=== PATIENT | male | born 1935 | race Caucasian/White ===

== ENCOUNTER 2018-12-06 11:25 | Emergency (ER) | payer MEDICARE, MEDICAID ==
[2018-12-06 11:40] VITALS: BMI 27.4
[2018-12-06 12:44] LABS: SQUAMOUS EPITHIAL < 1 /hpf (0-5); URINE BILIRUBIN NEGATIVE (NEGATIVE); URINE BLOOD NEGATIVE (NEGATIVE); URINE CLARITY Clear (Clear); URINE COLOR Yellow (YELLOW); URINE GLUCOSE (UA) NORMAL (Normal); URINE LEUKOCYTE ESTERASE NEG Leu/uL (Negative); URINE PROTEIN NEGATIVE (NEGATIVE)
[2018-12-06 12:50] LABS: BASO % 0.6 % (0.0-2.0); EOS % 0.1 % (0.0-4.0); HEMOGLOBIN 13.7 g/dL (12.0-18.0); LYMPH # 1.1 K/uL (1.0-4.3); LYMPH % 20.5 % (20.0-40.0); MEAN CELL VOLUME 91.2 fL (80.0-94.0); MEAN CORPUSCULAR HEMOGLOBIN 30.1 pg (27.0-31.0); MEAN PLATELET VOLUME 8.7 fL (7.2-11.7); MONO # 0.2 K/uL (0.0-0.8); MONO % 4.7 % (0.0-10.0); NEUT # 3.9 K/uL (1.8-7.0); NEUT % 74.1 % (50.0-75.0); NRBC % 0.1 % (0.0-2.0); RBC 4.57 Mil/uL (4.40-5.90); RED CELL DISTRIBUTION WIDTH 15.4 % (11.5-14.5); WHITE BLOOD COUNT 5.2 K/uL (4.8-10.8)
[2018-12-06 13:06] LABS: ALB/GLOB RATIO 1.3 (1.0-2.1); ALBUMIN 4.5 g/dL (3.5-5.0); ALT/SGPT 20 U/L (21-72); AST/SGOT 31 U/L (17-59); BLOOD UREA NITROGEN 18 mg/dL (9-20); CALCIUM 9.3 mg/dl (8.6-10.4); GFR NON-AFRICAN AMERICAN 58; LIPASE 90 U/L (23-300)
[2018-12-06] MEDS ORDERED: Belladonna-Phenobarbital PO STA (13:33)
[2018-12-06] MEDS ORDERED: Alum-Mag Hydrox-Simethicone Susp (30 mL) PO STA (13:33)
--- NOTE | 2018-12-06 13:50 | C.PDOC ---
History Of Present Illness 82 y/o male presents to the ER complaining of persistent epigastric abdominal pain and lower back pain which has been present for the past 2 days. Patient states that he feels nauseous. Patient rates the pain 6/10. He notes that he did not take any medications for the pain. Denies having paresthesias, weakness, bowel/bladder incontinence, fever,chills, CP,SOB, vomiting, and urinary symptoms. Time Seen by Provider: 12/06/18 12:07 Chief Complaint (Nursing): Abdominal Pain History Per: Assignment Officer (ERIN intepreter # [id number]) History/Exam Limitations: no limitations Onset/Duration Of Symptoms: Days Current Symptoms Are (Timing): Still Present Severity: Moderate Past Medical History Reviewed: Historical Data, Nursing Documentation, Vital Signs Vital Signs: Last Vital Signs Temp 98.4 F 12/06/18 11:40 Pulse 85 12/06/18 11:40 Resp 17 12/06/18 11:40 BP 175/82 H 12/06/18 11:40 Pulse Ox 99 12/06/18 11:40 - Medical History PMH: HTN Other Surgeries: Hx of surgeries Family History: States: No Known Family Hx - Social History Hx Alcohol Use: No (Former) Hx Substance Use: No - Immunization History Hx Tetanus Toxoid Vaccination: No Hx Influenza Vaccination: No Hx Pneumococcal Vaccination: No Review Of Systems Except As Marked, All Systems Reviewed And Found Negative. Constitutional: Negative for: Fever, Chills Cardiovascular: Negative for: Chest Pain Respiratory: Negative for: Shortness of Breath Gastrointestinal: Positive for: Nausea, Abdominal Pain. Negative for: Vomiting Genitourinary: Negative for: Dysuria, Hematuria Musculoskeletal: Positive for: Back Pain Physical Exam - Physical Exam Appears: Non-toxic, No Acute Distress Skin: Normal Color, Warm, Dry Head: Atraumatic, Normacephalic Eye(s): bilateral: Normal Inspection Nose: Normal Oral Mucosa: Moist Neck: Supple Chest: Symmetrical Cardiovascular: Rhythm Regular Respiratory: Normal Breath Sounds, No Rales, No Rhonchi, No Wheezing Gastrointestinal/Abdominal: Bowel Sounds (hyperactive bowel sounds), Soft, Tenderness (epigastric tenderness), No Guarding, No Rebound Back: No CVA Tenderness, Paraspinal Tenderness (lumbar paraspinal tenderness) Neurological/Psych: Oriented x3, Normal Speech ED Course And Treatment - Laboratory Results Result Diagrams: 12/06/18 12:47 12/06/18 12:47 Lab Results: Troponin I < 0.0120 ng/mL (0.00-0.120) 12/06/18 12:47 Total Bilirubin 0.7 mg/dL (0.2-1.3) 12/06/18 12:47 AST 31 U/L (17-59) 12/06/18 12:47 ALT 20 U/L (21-72) L 12/06/18 12:47 Alkaline Phosphatase 83 U/L (38-126) 12/06/18 12:47 Total Protein 8.0 g/dL (6.3-8.3) 12/06/18 12:47 Albumin 4.5 g/dL (3.5-5.0) 12/06/18 12:47 Globulin 3.4 gm/dL (2.2-3.9) 12/06/18 12:47 Albumin/Globulin Ratio 1.3 (1.0-2.1) 12/06/18 12:47 Lipase 90 U/L (23-300) 12/06/18 12:47 Urine Color Yellow (YELLOW) 12/06/18 12:38 Urine Clarity Clear (Clear) 12/06/18 12:38 Urine pH 7.0 (5.0-8.0) 12/06/18 12:38 Ur Specific [place] 1.016 (1.003-1.030) 12/06/18 12:38 Urine Protein Negative mg/dL (NEGATIVE) 12/06/18 12:38 Urine Glucose (UA) Normal mg/dL (Normal) 12/06/18 12:38 Urine Ketones Negative mg/dL (NEGATIVE) 12/06/18 12:38 Urine Blood Negative (NEGATIVE) 12/06/18 12:38 Urine Nitrate Negative (NEGATIVE) 12/06/18 12:38 Urine Bilirubin Negative (NEGATIVE) 12/06/18 12:38 Urine Urobilinogen 2.0 mg/dL (0.2-1.0) 12/06/18 12:38 Ur Leukocyte Esterase Neg Alexander/uL (Negative) 12/06/18 12:38 Urine WBC (Auto) < 1 /hpf (0-5) 12/06/18 12:38 Urine RBC (Auto) 1 /hpf (0-3) 12/06/18 12:38 Ur Squamous Epith Cells < 1 /hpf (0-5) 12/06/18 12:38 ECG: Interpreted By Me, Viewed By Me ECG Rhythm: Sinus Rhythm Interpretation Of ECG: NRS with occasional PVC's, normal intervals, and normal axises Rate From EC O2 Sat by Pulse Oximetry: 99 (RA) Pulse Ox Interpretation: Normal Medical Decision Making Medical Decision Making: Plan: --Labs --UA --CXR -- PO --Maalox PO Updates: 16:13 On re-evaluation, patient feels better is requesting d/c home. Patient stable for d/c. Patient verbalized understanding to f/u w/pcp in 1-2 days and to RTED for new or concerning symptoms. Disposition Counseled Patient/Family Regarding: Studies Performed, Diagnosis, Need For Followup - Disposition Referrals: Hira Vasquez MD [Medical Doctor] - Disposition: HOME/ ROUTINE Disposition Time: 17:11 Condition: IMPROVED Prescriptions: Famotidine [Pepcid] 20 mg PO DAILY #30 tab Naproxen [Naprosyn] 500 mg PO BID PRN #30 tablet PRN Reason: Pain, Moderate (4-7) Instructions: Low Back Pain (DC), Acute Abdomen (Belly Pain), Adult (DC) Forms: [employer] (Kenyan), Gen Discharge Inst Kenyan Print Language: DANISH - POA Present On Arrival: None - Clinical Impression Clinical Impression: Abdominal pain, Low back pain - Scribe Statement The provider has reviewed the documentation as recorded by the Doris Garcia Provider Attestation: All medical record entries made by the Janelibdionte were at my direction and personal ly dictated by me. I have reviewed the chart and agree that the record accurately reflects my personal performance of the history, physical exam, medical decision making, and the department course for this patient. I have also personally directed, reviewed, and agree with the discharge instructions and disposition.
[2018-12-06] MEDS ORDERED: Alum-Mag Hydrox-Simethicone Susp (30 mL) ONE (13:51)
[2018-12-06] MEDS ORDERED: Belladonna-Phenobarbital ONE (13:51)
[2018-12-06 15:54] VITALS: BP 166/71; PULSE 59; RESP 17; TEMP 98.6
[2018-12-06 16:21] VITALS: O2SAT 99
--- NOTE | 2018-12-06 17:06 | RAD ---
Date of service: 12/06/2018 HISTORY: Abdominal pain COMPARISON: None available. FINDINGS: LUNGS: Suspect minor right basilar atelectasis PLEURA: No significant pleural effusion identified, no pneumothorax apparent. CARDIOVASCULAR: No aortic atherosclerotic calcification present. Heart is mildly enlarged. No pulmonary vascular congestion. OSSEOUS STRUCTURES: No significant abnormalities. VISUALIZED UPPER ABDOMEN: Normal. OTHER FINDINGS: None. IMPRESSION: Suspect minor right basilar atelectasis.
--- NOTE | 2018-12-08 21:33 | CARD ---
APPROVED REPORT Date of service: 12/06/2018 EKG Measurement Heart [id number] ID [id number] <Conclusion> Sinus rhythm with sinus arrhythmia with occasional premature ventricular complexes Possible Left atrial enlargement Borderline ECG
== END 2018-12-06 17:15 | disposition home or self-care (01) ==
LOC: C.ER 11:25
DX: M54.5 Low back pain (principal); R10.13 Epigastric pain; I10 Essential (primary) hypertension